=== PATIENT | female | born 1980 | race Asian ===

== ENCOUNTER 2017-12-11 10:06 | Day surgery (SDC) | payer MEDICAID ==
[~2017-12-11] VITALS: Ht 152.4 cm; Wt 57.6 kg
[2017-12-11 10:11] VITALS: BP 111/83
--- NOTE | 2017-12-11 10:19 | NUR ---
PT AMBULATED TO BED 11
--- NOTE | 2017-12-11 10:19 | NUR ---
Patient ambulated to bed 11.
--- NOTE | 2017-12-11 10:19 | NUR ---
PT AMBULATED TO ER BED 11.
[2017-12-11 10:29] VITALS: BP 111/83
--- NOTE | 2017-12-11 10:38 | NUR ---
37/F PRESENT TO ER C/O VAGINAL BLEED x 3 DAYS. PT WAS REFFERED BY PRIMARY DRCosta TO ER. PT STATES SHE IS 7WKS , LMP 10/24/2017. PT DENIES ANY PAIN. PT STATES SPOTTING WITH ON PAD PER DAY, N/V. BS ACTIVE X4, ABD SOFT NON TENDER. ER MD MADE AWARE. WILL CONTINUE TO MONITOR HX: NONE MEDS: MISOPROSTOL 200MCG
[2017-12-11] MEDS ORDERED: NACL 0.9% 1,000 ML IV ONE (10:59)
--- NOTE | 2017-12-11 11:18 | NUR ---
ULTRASOUND AT BEDSIDE
[2017-12-11 11:22] LABS: HEMATOCRIT 42.7 % (36-48); HEMOGLOBIN 14.6 g/dL (12.0-16.0); LYMPHOCYTES % (AUTO) 10.7 % (20.5-51.1); MEAN CORPUSCULAR HEMOGLOBIN 30 pg (27-31); MEAN CORPUSCULAR HGB CONC 34 g/dL (33-37); MONOCYTES % (AUTO) 5.4 % (1.7-9.3); NEUTROPHILS % (AUTO) 82.2 % (42.2-75.2); PLATELET COUNT (AUTO) 232 K/uL (140-450); RED BLOOD CELL COUNT(AUTO) 4.85 MIL/uL (4.20-5.40); RED CELL DISTRIBUTION WIDTH 12.7 % (11.6-13.7); WHITE BLOOD COUNT (AUTO) 8.8 K/uL (4.8-10.8)
[2017-12-11 11:22] LABS: BILIRUBIN,URINE 1+ (NEGATIVE); BLOOD, URINE 3+ (NEGATIVE); COLOR,URINE YELLOW (YELLOW); LEUKOCYTE ESTERASE ,URINE NEGATIVE (NEGATIVE); NITRITE, URINE NEGATIVE (NEGATIVE); UGLUCOSE NEGATIVE (NEGATIVE)
[2017-12-11 11:23] LABS: BASOPHILS % (AUTO) 1.4 % (0.0-2.0); EOSINOPHILS % (AUTO) 0.3 % (0.0-4.0)
[2017-12-11 11:24] LABS: BASOPHILS # (AUTO) 0.1 K/uL (0.00-0.22); LYMPHOCYTES # (AUTO) 0.9 K/uL (2.5-16.5); MONOCYTES # (AUTO) 0.5 K/uL (0.8-1.0); NEUTROPHILS # (AUTO) 7.2 K/uL (1.8-7.7)
[2017-12-11 11:37] LABS: ANION GAP 12.6 (8-16); CARBON DIOXIDE 23.7 mmol/L (21-32); CREATININE 0.8 mg/dL (0.6-1.3); POTASSIUM 3.3 mmol/L (3.5-5.1)
[2017-12-11 11:38] LABS: APPEARANCE,URINE SLIGHTLY CLOUDY (CLEAR)
[2017-12-11 11:41] LABS: PROTHROMBIN TIME 11.6 secs (10.8-13.4)
[2017-12-11 11:46] LABS: RBC,URINE 11-20 (MOD) /HPF (0-5); WBC,URINE 0-5 (RARE) /HPF (0-5)
[2017-12-11 12:05] LABS: ALBUMIN 4.3 g/dL (3.4-5.0); TOTAL BILIRUBIN 1.1 mg/dL (0.0-1.0)
[2017-12-11] MEDS ORDERED: NACL 0.9% 1,000 ML IV SCH (12:09)
[2017-12-11] MEDS ORDERED: ONDANSETRON 4 MG/2 ML VIAL IM/IVP PRN (12:10)
[2017-12-11] MEDS ORDERED: DOCUSATE SODIUM 100 MG GELCAP PO PRN (12:10)
[2017-12-11] MEDS ORDERED: ACETAMINOPHEN 325 MG TAB PO PRN (12:10)
[2017-12-11] MEDS ORDERED: ZOLPIDEM 5 MG TAB PO PRN (12:10)
[2017-12-11] MEDS ORDERED: LORazepam 2 MG/ML VIAL IM/IVP PRN (12:10)
--- NOTE | 2017-12-11 12:16 | NUR ---
PT TO SURGERY VIA GURNEY IN STABLE CONDITION.
[2017-12-11] MEDS ORDERED: PROPOFOL 200 MG/20 ML VIAL IV ONE (12:25)
[2017-12-11] MEDS ORDERED: ONDANSETRON 4 MG/2 ML VIAL ONE (12:25)
[2017-12-11] MEDS ORDERED: DEXAMETHASONE 4 MG/ML VIAL ONE (12:25)
[2017-12-11] MEDS ORDERED: MIDAZOLAM 2 MG/2 ML VIAL ONE (12:29)
[2017-12-11] MEDS ORDERED: MEPERIDINE 25 MG/ML SYR ONE (12:30)
[2017-12-11] MEDS ORDERED: fentaNYL 0.05 MG/ML VIAL ONE (12:30)
[2017-12-11] MEDS ORDERED: LACTATED RINGERS 1,000 ML IV SCH (12:53)
[2017-12-11] MEDS ORDERED: MEPERIDINE 25 MG/ML SYR IVP PRN (12:55)
[2017-12-11] MEDS ORDERED: HYDROmorphone 1 MG/ML AMP IVP PRN (12:55)
[2017-12-11] MEDS ORDERED: diphenhydrAMINE 50 MG/ML VIAL IVP PRN (12:55)
[2017-12-11] MEDS ORDERED: ONDANSETRON 4 MG/2 ML VIAL IVP PRN (12:55)
[2017-12-11 12:59] LABS: BARBITURATE, URINE NEG. ng/ml (NEG <=200); BENZODIAZEPINE, URINE NEG. ng/mL (NEG <=200); CANNABINOID, URINE NEG. ng/mL (NEG <=50); COCAINE, URINE NEG. ng/mL (NEG <=300); OPIATE, URINE NEG. ng/mL (NEG <=2000); PHENCYCLIDINE SCREEN,URINE NEG. ng/mL (NEG <=25)
[2017-12-11 13:00] LABS: CHOL/HDL RATIO 3.4 (1-4.5); MAGNESIUM 2.2 mg/dL (1.8-2.4); PHOSPHORUS 3.4 mg/dL (2.5-4.9); THYROID STIMULATING HORMONE 0.91 uIU/mL (0.34-3.74)
--- NOTE | 2017-12-11 14:00 | NUR ---
RECEIVED PT FROM PACU AAOX4; S/P D&C. NO SOB NOTED. NO C/O PAIN AT THIS TIME. IV TO LT AC PATENT AND INTACT. CHEST CLEAR. ABDOMEN SOFT BOWEL SOUNDS PRESENT. NO EDEMA NOTED. NO VAGINAL BLEEDING NOTED ON COURTNEY PAD. INSTRUCTED PT TO CALL FOR ASSISTANCE, CALL LIGHT WITHIN REACH, PT VERBALIZED UNDERSTANDING. AT THE BEDSIDE. V/S: TEMP: 97.8 F; 106/62 MMHG, HR 88/MIN; RESP: 20/MIN; ON ROOM AIR, O2 SATS 100%.
--- NOTE | 2017-12-11 14:24 | NUR ---
SPOKE WITH DR. THOMAS, DR. SANCHEZ'S RESIDENT, STATED THAT DR. Thalia FALCON IS THE ATTENDING AND NOT DR. SANCHEZ. CALLED DR. Thalia FALCON FOR ADMISSION OR POST-OP ORDERS, TEL#: [phone], VOICEMAIL IS FULL. NO MESSAGE CAN BE LEFT. PAGED DR. Thalia FALCON #: [phone], AWAITING FOR CALL BACK.
--- NOTE | 2017-12-11 15:30 | NUR ---
PT TOLERATED ORAL FLUIDS WELL. NO NAUSEA AND VOMITING NOTED.
--- NOTE | 2017-12-11 16:40 | NUR ---
PT VOIDED FREELY IN THE BATHROOM. NO PROFUSE VAGINAL BLEEDING NOTED.
--- NOTE | 2017-12-11 17:30 | NUR ---
PT TOLERATED REGULAR DIET. NO COMPLAINTS MADE.
--- NOTE | 2017-12-11 17:45 | NUR ---
DISCHARGE INSTRUCTIONS GIVEN TO PT WHICH VERBALIZED FULL UNDERSTANDING OF THE INSTRUCTIONS AND THE NEED TO FOLLOW UP WITH DR. Preethi FALCON IN 7 DAYS. ARM BANDS AND IV REMOVED, CANNULA TIP INTACT.
--- NOTE | 2017-12-11 18:00 | NUR ---
PT IS D/C FROM [facility] FLO[facility] IN STABLE CONDITION, AMBULATORY, NO VAGINAL BLEEDING NOTED. NO COMPLAINTS MADE. D/C HOME WITH .
== END 2017-12-11 18:00 | disposition home or self-care (01) ==
LOC: MED 10:06 → MMU 12:35 → INTOOBSV 12:35 → UNDOADMOB 12:35 → MMU 14:00 → MDS 14:00
PROVIDERS: ATTEND Obstetrics & Gynecology
DX: O02.1 Missed abortion (principal); Z98.890 Other specified postprocedural states
CPT/HCPCS: 36415; 59820; 76801; 80053; 80061; 80305; 81001; 83036; 83690; 83735; 84100; 84134; 84443; 84702; 85025; 85610; 86900; 86901; 88305; J1100; J2175; J2250; J2405; J2704; J3010; J7120; Q0092